=== PATIENT | female | born 1990 | race Caucasian/White ===

== ENCOUNTER → 2016-11-11 | Outpatient (CLI) | payer OTHER ==
[2016-11-11 09:01] LABS: BASO % 0.4 %; BASO ABS # 0.03 K/uL (0-0.2); COMPLETE YES; HEMATOCRIT 41.5 % (37-47); IG% 0.3 %; LYMPH % 31.8 %; LYMPH ABS # 2.54 K/uL (1.2-3.4); MEAN CELL VOLUME 90.2 fL (80-100); MEAN CORPUSCULAR HGB CONC 33.3 g/dl (32-36); MEAN PLATELET VOLUME 10.3 fL (7.4-10.4); MONO % 7.1 %; NEUT % 59.4 %; PLATELET COUNT 240 K/uL (130-400); WHITE BLOOD COUNT 7.99 K/uL (4.8-10.8)
[2016-11-11 09:20] LABS: ALT/SGPT 19 U/L (12-78); BLOOD UREA NITROGEN 10 mg/dl (7-18); BUN/CREATININE RATIO 12.6 (10-20); CARBON DIOXIDE 26 mmol/L (21-32); CHLORIDE 106 mmol/L (98-107); CHOLESTEROL 151 mg/dl (0-200); GLUCOSE 76 mg/dl (70-99); POTASSIUM 3.9 mmol/L (3.5-5.1); SODIUM 139 mmol/L (136-145); TRIGLYCERIDES 46 mg/dl (0-150); VERY LOW DENSITY LIPOPROT CALC 9 mg/dl
[2016-11-11 09:30] LABS: ALB/GLOB RATIO 1.1 (0.9-2); ALKALINE PHOSPHATASE 44 U/L (45-117); AST/SGOT 12 U/L (15-37); CHOLESTEROL/HDL RATIO 2.4; HDL CHOLESTEROL 64 mg/dl; LDL CHOLESTEROL CALCULATED 78 mg/dl; THYROID STIMULATING HORMONE 0.934 uIu/ml (0.300-4.500)
[2016-11-11 12:32] LABS: URINE APPEARANCE CLEAR (CLEAR); URINE BILIRUBIN NEG (NEG); URINE COLOR YELLOW; URINE EPITHELIAL CELL AUTO >30 /lpf (0-5); URINE NITRITE NEG (NEG); URINE PH 6.5 (4.5-7.5); URINE SPECIFIC GRAVITY 1.017 (1.000-1.030); UROBILINOGEN NEG (NEG); ZZUR CULT IF INDIC CLEAN CATCH YES
[2016-11-11 12:36] LABS: MANUAL MICROSCOPIC REQUIRED? NO; REVIEW REQ? NO
[2016-11-11 12:39] LABS: URINE TOTAL PROTEIN < 5.0 mg/dl (0-11.9)
== END | disposition home or self-care (01) ==
LOC: C.LAB 08:07
PROVIDERS: ATTEND Internal Medicine Nephrology
DX: Z00.00 Encounter for general adult medical examination without abnormal findings (principal); I10 Essential (primary) hypertension

== ENCOUNTER → 2017-01-02 | Outpatient (CLI) | payer OTHER ==
[2017-01-02 12:03] LABS: URINE APPEARANCE CLEAR (CLEAR); URINE BILIRUBIN NEG (NEG); URINE COLOR YELLOW; URINE NITRITE NEG (NEG); UROBILINOGEN NEG (NEG)
[2017-01-02 12:12] LABS: MANUAL MICROSCOPIC REQUIRED? NO; REVIEW REQ? NO
[2017-01-05 10:37] LABS: CHLAMYDIA TRACH RNA*** NOT DETECTED (NOT DETECTED); GC (NEIS GONORRHOEAE)RNA** NOT DETECTED (NOT DETECTED)
== END | disposition home or self-care (01) ==
LOC: C.LABSPEC 11:02
PROVIDERS: ATTEND Obstetrics & Gynecology
DX: Z34.01 Encounter for supervision of normal first pregnancy, first trimester (principal); Z3A.00 Weeks of gestation of pregnancy not specified

== ENCOUNTER → 2017-01-12 | Outpatient (CLI) | payer OTHER ==
[2017-01-12 08:39] LABS: PATIENT HEIGHT 180.3 cm
[2017-01-12 09:49] LABS: BASO % 0.2 %; BASO ABS # 0.02 K/uL (0-0.2); COMPLETE YES; EOS % 0.8 %; HEMATOCRIT 42.1 % (37-47); IG% 0.2 %; LYMPH % 22.9 %; LYMPH ABS # 1.98 K/uL (1.2-3.4); MEAN CELL VOLUME 89.6 fL (80-100); MEAN CORPUSCULAR HEMOGLOBIN 30.9 pg (25-34); MEAN CORPUSCULAR HGB CONC 34.4 g/dl (32-36); MEAN PLATELET VOLUME 10.2 fL (7.4-10.4); NEUT % 68.9 %; PLATELET COUNT 236 K/uL (130-400); WHITE BLOOD COUNT 8.63 K/uL (4.8-10.8)
[2017-01-12 10:01] LABS: URINE TOTAL PROTEIN < 5.0 mg/dl (0-11.9)
[2017-01-12 10:36] LABS: CREATININE 0.65 mg/dl (0.6-1.2); URINE COLLECTION TIME 24 HOURS; URINE TOTAL PROTEIN CALC < 70.0 mg/24 hr (0-149.1)
[2017-01-19 10:34] LABS: RX HIV-1 RNA QUAL Not Detected (Not Detected)
== END | disposition home or self-care (01) ==
LOC: C.LAB 08:20
PROVIDERS: ATTEND Obstetrics & Gynecology
DX: Z34.01 Encounter for supervision of normal first pregnancy, first trimester (principal); O10.919 Unspecified pre-existing hypertension complicating pregnancy, unspecified trimester

== ENCOUNTER → 2017-05-08 | Outpatient (CLI) | payer OTHER ==
[2017-05-08 17:45] LABS: BASO % 0.1 %; BASO ABS # 0.01 K/uL (0-0.2); EOS % 0.8 %; EOS ABS # 0.07 K/uL (0-0.5); HEMATOCRIT 35.3 % (37-47); HEMOGLOBIN 11.8 g/dL (12.0-16.0); IG# 0.03 K/uL (0.00-0.02); LYMPH % 25.2 %; LYMPH ABS # 2.35 K/uL (1.2-3.4); MEAN CELL VOLUME 90.3 fL (80-100); MEAN CORPUSCULAR HEMOGLOBIN 30.2 pg (25-34); MEAN CORPUSCULAR HGB CONC 33.4 g/dl (32-36); MEAN PLATELET VOLUME 10.4 fL (7.4-10.4); MONO % 8.2 %; MONO ABS # 0.76 K/uL (0.11-0.59); NEUT % 65.4 %; PLATELET COUNT 242 K/uL (130-400); RED CELL DISTRIBUTION WIDTH CV 12.6 % (11.5-14.5); RED CELL DISTRIBUTION WIDTH SD 41.5 fL (36.4-46.3); WHITE BLOOD COUNT 9.32 K/uL (4.8-10.8)
[2017-05-08 18:28] LABS: ALBUMIN 2.8 gm/dl (3.4-5.0); ALKALINE PHOSPHATASE 52 U/L (45-117); ALT/SGPT 18 U/L (12-78); AST/SGOT 14 U/L (15-37); TOTAL PROTEIN 6.6 gm/dl (6.4-8.2); URIC ACID 3.8 mg/dl (2.6-7.2)
== END | disposition home or self-care (01) ==
LOC: C.LAB1850 16:20
PROVIDERS: ATTEND Obstetrics & Gynecology
DX: O09.93 Supervision of high risk pregnancy, unspecified, third trimester (principal); O10.919 Unspecified pre-existing hypertension complicating pregnancy, unspecified trimester

== ENCOUNTER → 2017-07-09 | Outpatient (CLI) | payer OTHER | END | disposition home or self-care (01) | LOC: C.LABSPEC 17:38 | PROVIDERS: ATTEND Obstetrics & Gynecology | DX: O09.93 Supervision of high risk pregnancy, unspecified, third trimester (principal) ==

== ENCOUNTER 2017-07-31 03:07 | Inpatient (IN) | payer OTHER ==
[~2017-07-31] VITALS: Ht 180.3 cm; Wt 98.2 kg
[2017-07-31] MEDS ORDERED: PREN-63 (18:04)
[2017-07-31] MEDS ORDERED: LACTATED RINGER'S 1000ML 1,000 ML IV PRN (18:19)
[2017-07-31] MEDS ORDERED: LACTATED RINGER'S 1000ML 500 ML IV PRN (18:19)
[2017-07-31 18:21] VITALS: Ht 180.3 cm; Wt 98.2 kg
[2017-07-31] MEDS ORDERED: OXYTOCIN 30 UNITS/500ML NSS IV PRN (18:30)
[2017-07-31 18:46] LABS: BASO % 0.1 %; BASO ABS # 0.01 K/uL (0-0.2); EOS % 0.7 %; EOS ABS # 0.06 K/uL (0-0.5); HEMATOCRIT 35.5 % (37-47); HEMOGLOBIN 11.5 g/dL (12.0-16.0); IG# 0.03 K/uL (0.00-0.02); LYMPH % 25.5 %; LYMPH ABS # 2.21 K/uL (1.2-3.4); MEAN CELL VOLUME 79.8 fL (80-100); MEAN CORPUSCULAR HEMOGLOBIN 25.8 pg (25-34); MEAN PLATELET VOLUME 10.2 fL (7.4-10.4); MONO % 11.1 %; MONO ABS # 0.96 K/uL (0.11-0.59); NEUT % 62.3 %; NEUT ABS # 5.41 K/uL (1.4-6.5); PLATELET COUNT 239 K/uL (130-400); RED CELL DISTRIBUTION WIDTH CV 14.1 % (11.5-14.5); RED CELL DISTRIBUTION WIDTH SD 40.3 fL (36.4-46.3); WHITE BLOOD COUNT 8.68 K/uL (4.8-10.8)
[2017-07-31] MEDS: LACTATED RINGER'S 1000ML 1,000 ML IV SCH (18:48)
[2017-07-31 18:51] LABS: MEAN CORPUSCULAR HGB CONC 32.4 g/dl (32-36)
[2017-07-31 18:55] LABS: INR 0.9 (0.9-1.1)
[2017-07-31 19:13] LABS: ALBUMIN 2.5 gm/dl (3.4-5.0); ALKALINE PHOSPHATASE 142 U/L (45-117); ALT/SGPT 13 U/L (12-78); AST/SGOT 16 U/L (15-37); CREATININE 0.59 mg/dl (0.60-1.20); TOTAL PROTEIN 6.3 gm/dl (6.4-8.2); URIC ACID 4.8 mg/dl (2.6-7.2)
[2017-08-01] MEDS: LACTATED RINGER'S 1000ML 1,000 ML IV SCH (10:25)
[2017-08-01] MEDS ORDERED: BENZOCAINE 20% AER SPR 82.5 GM CAN EXT PRN (14:15)
[2017-08-01] MEDS ORDERED: SUPERCREAM 0.870 % 15GM JAR EXT PRN (14:15)
[2017-08-01] MEDS ORDERED: ACETAMINOPHEN 325 MG TAB PO PRN (14:15)
[2017-08-01] MEDS ORDERED: OXYTOCIN 30 UNITS/500ML NSS IV PRN (14:15)
[2017-08-01] MEDS ORDERED: LANOLIN OINT EXT PRN (14:15)
[2017-08-01] MEDS ORDERED: OXYCODONE/ACETAMINOPHEN 5-325 TAB PO PRN (14:15)
--- NOTE | 2017-08-01 14:54 | DELIVERY SUMMARY ---
DATE OF OPERATION: 08/01/2017 The patient is a 27-year-old 1, P0 white female, EDC of 07/31/2017, who presented for induction because of a history of chronic hypertension, blood pressure has had been essentially normal without medications during her . She received a cervical Horne balloon, the evening of 07/31/2017, which progressed her to 1-2 cm. Pitocin augmentation was also started at that time at 4 cm then membranes were ruptured for clear fluid. She then progressed quickly to full dilation and pushed effectively over intact perineum for delivery of a viable male infant. Mouth and nasopharynx were suctioned on the perineum. A double loose nuchal cord was reduced prior delivering the rest of the . The was then placed on the mother's abdomen for further attention and dry. The cord was clamped and cut and the was then taken to the baby bed for further stimulation. There was spontaneous crying as well as the infant was moving all 4 limbs. The placenta was then expressed intact with a 3-vessel cord. A first degree perineal laceration was repaired with 3-0 chromic and 1% lidocaine. There were bilateral superficial lacerations of the labia but these were not bleeding and therefore not repaired. They will be considered a first degree laceration. Estimated blood loss was 300 mL. Mother and infant were doing well after delivery. I attest to the content of the Intraoperative Record and any orders documented therein. Any exception s are noted below.
[2017-08-01 16:20] VITALS: BP 147/86; PULSE 84; TEMP 36.7
[2017-08-01] MEDS: DOCUSATE SODIUM 100 MG CAP PO SCH (20:23)
[2017-08-01] MEDS: BISACODYL 5 MG TABEC PO SCH (20:23)
[2017-08-01 20:30] VITALS: BP 144/87; PULSE 81; TEMP 36.8
[2017-08-02] VITALS: BP 134/84; PULSE 86; TEMP 36.8
[2017-08-02 02:10] VITALS: BP 120/79; PULSE 64; TEMP 36.6
[2017-08-02] MEDS: IBUPROFEN 600 MG TAB PO PRN ×3 (02:41→20:22)
[2017-08-02 04:45] VITALS: BP 139/85; PULSE 80; TEMP 36.5
[2017-08-02] MEDS: BISACODYL 5 MG TABEC PO SCH (05:51)
[2017-08-02] MEDS ORDERED: BISACODYL 5 MG TABEC ONE (05:56)
[2017-08-02 07:26] LABS: HEMATOCRIT 33.9 % (37-47); HEMOGLOBIN 11.1 g/dL (12.0-16.0)
[2017-08-02 07:35] VITALS: BP 147/79; PULSE 76; TEMP 36.7
[2017-08-02] MEDS: DOCUSATE SODIUM 100 MG CAP PO SCH ×2 (07:44→20:21)
[2017-08-02] MEDS: PRENATAL VITAMIN TAB PO SCH (07:44)
--- NOTE | 2017-08-02 08:33 | Progress Note ---
Subjective Aug 02, 2017. Subjective conversation w/ patient, physical exam Ambulation: ambulating normally Voiding: no voiding problems Passing Gas: Yes Diet Tolerance: Regular Diet Lochia: Small Feeding Type: Breast Feeding Review of Systems Constitutional: No fever, No chills, No sweats, No weight loss, No weakness, No fatigue, No problem reported Breast: No see HPI, No breast lump, No change in shape, No nipple discharge, No breast pain, No problem reported Abdomen: No pain, No nausea, No vomiting, No diarrhea, No constipation, No GI bleeding, No problem reported Objective Vital Signs Date Time Temp Pulse Resp B/P (MAP) Pulse Ox O2 Delivery O2 Flow Rate FiO2 08/02/17 04:45 36.5 80 18 139/85 (103) Room Air 08/02/17 00:00 Room Air 08/02/17 00:00 36.8 86 18 134/84 (101) Room Air 08/01/17 20:30 36.8 81 18 144/87 (106) Room Air 08/01/17 16:20 36.7 84 18 147/86 (106) Room Air 08/01/17 16:20 Room Air Physical Exam General Appearance: WELL-APPEARING, NO APPARENT DISTRESS Abdomen: non tender, soft Fundus: Firm, Non-Tender, Relation to Umbilicus (1 below U) Extremities: no calf tenderness Laboratory Results Last 24 Hours Test 08/02/17 07:08 Hemoglobin 11.1 g/dL Hematocrit 33.9 % Assessment and Plan Day#: 1 Continue Routine Care: stable course continue current care plan
--- NOTE | 2017-08-02 08:34 | Discharge Instructions ---
Discharge Instructions Date of Service Aug 02, 2017. Admission Reason for Admission: Induction Discharge Discharge Diagnosis / Problem: normal delivery- chronic HTN Discharge Goals Goal(s): Routine recovery after delivery Medications Continue Dispensed Medications: supercream, dermaplast, tucks, lansinoh Activity Recommendations Activity Limitations: per Instructions/Follow-up section . Instructions / Follow-Up Instructions / Follow-Up ACTIVITY RECOMMENDATIONS: * Gradual return to full activity over the next 2-3 weeks. * No lifting - nothing heavier than baby over the next 2-3 weeks. * Do not engage in vigorous exercise, sexual activity or sports until cleared by your physician. * Do not drive or operate any motorized equipment until cleared by your physician. * You may shower/bathe daily. MEDICATIONS: For discomfort or pain, you may use Acetaminophen (Tylenol), Ibuprofen (Advil), or Naproxen (Aleve) following the package directions. For constipation you may use Colace following the package directions. BREAST CARE: If you are not breast feeding: * Wear a supportive bra 24 hours a day for one to two weeks. * Avoid stimulating your breasts and nipples as much as possible during the first few weeks after delivery. * When taking a shower, have the warm water hit your back, not breasts. * When your breasts feel full, apply ice packs. Usually three to four times a day helps ease the discomfort. * Take a mild pain medication (Tylenol / Motrin) when you are uncomfortable. If breast feeding: * Use breast milk to lubricate nipples. Lansinoh cream may be used for sore nipples. You do not need to remove cream prior to breast feeding. If using a different brand of cream, check the label for directions regarding removal of cream prior to nursing. * Wear a supportive bra. * If having problems with breasts or breast feeding, call a gis consultant or your health care provider. EPISIOTOMY CARE: After delivery, if you have an episiotomy (stitches), the following steps will ease discomfort and aid healing. * For the first 24 hours after delivery, place ice packs next to your episiotomy to help reduce swelling. * After the first 24 hour-period, sitz baths, either portable or in the tub, are suggested. A shower with a shower arm sprayed over the episiotomy may be comforting. * Colleen care should be done after each voiding and bowel movement. Squirt warm water from a plastic bottle over the perineum (region of the body between the anus and urinary opening) and pat dry. * Use Dermoplast to ease discomfort. Shake container. [place] directly over the episiotomy. Place a Tucks on a clean sanitary pad next to your episiotomy. SPECIAL CARE INSTRUCTIONS: When you are discharged from the hospital, it is important for you to follow the instructions listed below: * During the first week at home, you should be able to care for yourself and your baby. In addition, the usual light household activities are encouraged. * Limit your activities to the way you feel. Do not try to clean the house or move furniture. Be sensible. * If you actively engage in sports and have done so up until the time of your delivery, you may resume these activities as soon as you feel able. This may take up to one month or even longer. Use good judgment. * Continue to take your vitamins for at least six weeks after the of your baby. * Your diet need not be limited unless you were on a special diet before your delivery. Breast-feeding mothers need around 2500 calories per day and at least 64-80 ounces of fluid per day (8 to 10 glasses). * You should eat foods from the four major food groups. Crash diets or fad diets are to be avoided. Eating lean meats, fresh fruits and vegetables, low-fat dairy products, high fiber foods and a regular exercise program, will help you get back to your pre- weight without putting your health at risk. * Constipation is sometimes a problem after delivery. Take a mild laxative as needed. If breast feeding, Milk of Magnesia is acceptable to use. You may use a suppository or Fleets enema if no episiotomy. * A daily shower or tub bath is suggested. Be sure to thoroughly and gently dry the perineum. * A bloody vaginal discharge will usually continue until around four weeks post . A small amount of bleeding may continue for as long as six weeks. Vaginal discharge changes from the bright red bleeding after delivery to pink then brownish and finally yellowish-pink before becoming white and disappearing. * Bleeding may increase with activity. Your first period may come in 4-8 weeks. If you are breast feeding, your period may be delayed even longer. * [place] (sex) can begin whenever both you and your partner feel comfortable and do not have any form of genital infection. It is recommended that you wait at least six weeks for internal and external healing to occur. If you have questions, please talk to your health care practitioner. A condom should be used to prevent infection and . * Foreplay, gentle intercourse and lubrication is very important the first several times to prevent pain. A water-based lubricant such as K-Y jelly or Astroglide may be used. * If you have RH negative blood and your baby is RH positive, you will receive RHOGAM by injection prior to discharge. The nurse will give you a card to keep with you that has the date and place that you received RHOGAM after delivery. * During your care, you had a Rubella screen done to check for the presence of rubella antibodies in your blood. If your test was negative, you will receive a Rubella vaccine prior to discharge. This vaccine may cause a fever, soreness at the injection site and flu-like symptoms. If these symptoms persist, notify your health care practitioner. is not advised for one month after a Rubella vaccine. * Verbalizes understanding of car seat law as reviewed with patient nursing. * Car Seat hand-out given and reviewed with patient by nursing. * Shaken baby information reviewed with patient by nursing. Call you doctor if: * Heavy bleeding (saturating several pads an hour) or passing clots the size of your fist. * A fever >101 degrees F (38.3 degrees C) on two occasions four hours apart and /or chills. * Unusual pain in the pelvic or vaginal areas. * "Baby Blues" lasting longer than two weeks. If you have any questions or concerns, call your health care practitioner at . FOLLOW UP VISIT: * Please call the office at to schedule a 6 week examination. It is important you keep this appointment. It is important for you to make arrangements for either yearly or twice yearly check-ups thereafter. Current Hospital Diet Patient's current hospital diet: Regular OB Diet Discharge Diet Recommended Diet: Regular OB Diet Pending Studies Studies pending at discharge: no Medical Emergencies . Who to Call and When: Medical Emergencies: If at any time you feel your situation is an emergency, please call [phone] immediately. . Non-Emergent Contact Non-Emergency issues call your: Hog Ribber . . "Provider Documentation" section prepared by Aimee Alonso .
[2017-08-02 13:15] VITALS: BP 143/74; PULSE 88; TEMP 36.5
[2017-08-02 16:28] VITALS: BP 133/90; PULSE 73; TEMP 36.6
[2017-08-03] MEDS ORDERED: BISACODYL 10 MG SUPP PR PRN (07:00)
--- NOTE | 2017-08-03 07:31 | OB/GYN Progress Note ---
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 Subjective conversation w/ patient, conversation w/ family, physical exam, chart review, lab review Ambulation: ambulating normally Voiding: no voiding problems Passing Gas: Yes Diet Tolerance: Regular Diet Lochia: Moderate Review of Systems Constitutional: No fever, No chills, No sweats Respiratory: No cough, No sputum, No wheezing Cardiac: No chest pain Abdomen: No pain Female : No dysuria Objective Vital Signs Date Time Temp Pulse Resp B/P (MAP) Pulse Ox O2 Delivery O2 Flow Rate FiO2 08/02/17 16:28 36.6 73 16 133/90 (104) 08/02/17 13:15 36.5 88 22 143/74 (97) 08/02/17 07:35 36.7 76 20 147/79 (101) Physical Exam General Appearance: WELL-APPEARING, WD/WN, NO APPARENT DISTRESS Respiratory/Chest: lungs clear, no accessory muscle use Cardiovascular: regular rate, rhythm, no murmur Abdomen: normal bowel sounds, non tender, soft Fundus: Firm Extremities: non-tender, normal inspection, no pedal edema Medications Current Inpatient Medications Medications (Trade) Dose Ordered Sig/Helen Route Start Time Stop Time Status Last Admin Dose Admin Oxytocin (Pitocin IV) 30 units UD PRN IV 08/01/17 14:15 08/31/17 14:14 Benzocaine (Dermoplast Aero Spr) 1 appln PRN PRN EXT 08/01/17 14:15 08/31/17 14:14 08/01/17 20:34 1 APPLN Cocaine HCl (Supercream 0.870% Cr) BID PRN EXT 08/01/17 14:15 08/15/17 14:14 08/01/17 20:34 15 GM Lanolin (Lanolin Oint) PRN PRN EXT 08/01/17 14:15 08/31/17 14:14 Prenat Multivit/ [place]/Iron/Folic Ac ( Vitamin Tab) 1 tab DAILY PO 08/02/17 08:00 09/01/17 07:59 08/02/17 07:44 1 TAB Ibuprofen (Motrin Tab) 600 mg Q4H PRN PO 08/01/17 14:15 08/31/17 14:14 08/02/17 20:22 600 MG Acetaminophen (Tylenol Tab) 650 mg Q6H PRN PO 08/01/17 14:15 08/31/17 14:14 Oxycodone/ Acetaminophen (Percocet 5-325mg Tab) 1 tab Q4H PRN PO 08/01/17 14:15 08/15/17 14:14 Bisacodyl (Dulcolax Supp) 10 mg DAILY PRN NM 08/03/17 07:00 Docusate Sodium (coLACE CAP) 100 mg BID PO 08/01/17 20:00 08/31/17 19:59 08/02/17 20:21 100 MG Assessment and Plan Continue Routine Care: Resident Physician Supervision Note: I was present with Dr. Lex Castillo during the history and exam. I discussed the case with the resident and agree with the findings and plan as documented in the note. Any exceptions or clarifications are listed here: [None] Documented By: Aimee Reza 27 F, , vaginal delivery om 08/01. Pt is O+/RI/GBS-. Reviewed vitals WNL. Patient is doing well clinically Plan; 1. Vaginal delivery; cont. pp care: monitor lochia, ambulate, control pain
[2017-08-03] MEDS: DOCUSATE SODIUM 100 MG CAP PO SCH (08:10)
[2017-08-03] MEDS: PRENATAL VITAMIN TAB PO SCH (08:10)
[2017-08-03 08:40] VITALS: BP 145/97; PULSE 89; TEMP 36.7
== END 2017-08-03 16:15 | disposition home or self-care (01) | DRG 774 ==
LOC: C.LD 17:10 → C.OBG 08-01 16:51
PROVIDERS: ADMIT Obstetrics & Gynecology; ATTEND Obstetrics & Gynecology
PROC: 10H07YZ Insertion of Other Device into Products of Conception, Via Natural or Artificial Opening (ICD-10-PCS; 2017-07-31)
PROC: 10903ZC Drainage of Amniotic Fluid, Therapeutic from Products of Conception, Percutaneous Approach (ICD-10-PCS; 2017-07-31)
PROC: 3E033VJ Introduction of Other Hormone into Peripheral Vein, Percutaneous Approach (ICD-10-PCS; 2017-07-31)
PROC: 10E0XZZ Delivery of Products of Conception, External Approach (ICD-10-PCS; principal; 2017-08-01)
PROC: 0HQ9XZZ Repair Perineum Skin, External Approach (ICD-10-PCS; principal; 2017-08-01)
DX: O10.92 Unspecified pre-existing hypertension complicating childbirth (principal); O70.0 First degree perineal laceration during delivery; O69.81X0 Labor and delivery complicated by cord around neck, without compression, not applicable or unspecified; Z3A.40 40 weeks gestation of pregnancy; Z37.0 Single live birth

== ENCOUNTER → 2017-09-04 | Outpatient (CLI) | payer OTHER ==
[~2017-09-04] MED LIST: PREN-63
== END | disposition home or self-care (01) ==
LOC: C.PAPS 17:58
PROVIDERS: ATTEND Obstetrics & Gynecology
DX: Z12.4 Encounter for screening for malignant neoplasm of cervix (principal)

== ENCOUNTER 2021-06-03 06:54 | Inpatient (IN) ==
--- NOTE | 2021-05-28 13:08 | Anesthesiology Consultation ---
Date of Service May 28, 2021 Assessment & Plan (1) Encounter for pre-operative examination: - PCP telehealth visit 05/24/2021 [place]: "...currently 37 weeks . Started with nasal congestion on Thursday. Reports sinus pressure. No body aches. No cough. No fever or chills. 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 Pt is fully vaccinated. Last covid test was negative on 05/22/2021...Symptoms onset 6 days ago. Has had multiple negative covid tests. Is 37 weeks . Will send in Cefdinir to pharmacy. Notify office if symptoms do not improve..." - PCP office visit 09/24/2020 [place]: "...Numbness and tingling of left side of face...Pt with one time episode of confusion and left face and left sided body numbness. [facility] ER report not available for review. Will review and if needs f/u pt will be notified. If negative, will do expectant management. Pt to notify us if she has recurrence of symptoms and if so consider further w/u and/or referral to neuro. f/u as needed..." - ED visit 09/20/2020 [facility]: "...acute onset of confusion today...started to having [sic] memory issues steady dizziness...transient paresthesias migrating from left to right and left side again...resolved at this time...seems a little anxious but is concerned about the inability to remember things acutely...Some of this seems anxiety related although it is unclear if the anxiety is because of the confusion...all symptoms have fully resolved...Based on the labs and the entire picture I must assume that this was an anxiety...I did notice on the head scan that she has both ethmoidal and sphenoid mild sinusitis and I will put her on 7 days of Bactrim for this..." - COVID screening: Per master cosmetologist : Travel screen negative, no known COVID-19 positive contacts or current COVID-19 related symptoms in past 2 weeks. Patient vaccinated. Surgeon arranging preop COVID testing, scheduled 05/30/2021 [facility]. Awaiting results. Chart Review Chart Review: Patient NOT seen in Pre Admission Testing and data entry analyst initiated History Surgery Operation Date: 06/03/21 07:30 Proposed Procedures p Section (Delivery of Baby Through Abdominal Incision) - Brittney Jenkins MD, FACOG Height/Weight Height: 5 ft 11 in Weight: 102.965 kg Allergies Allergy/AdvReac Type Severity Reaction Status Date / Time amoxicillin AdvReac Intermediate GI SYMPTOMS Verified 05/28/21 12:22 Penicillins AdvReac Intermediate GI SYMPTOMS Verified 05/28/21 12:22 Medications Home Medications Medication Instructions Recorded Confirmed Last Taken prenat.vits,shaheen,[id number] 1 tab PO QAM 10/17/20 05/28/21 Unknown cefdinir 300 mg capsule 300 mg PO BID #14 cap 05/24/21 05/28/21 Unknown labetalol 100 mg tablet 100 mg PO BID #60 tab 05/24/21 05/28/21 Unknown aspirin 81 mg tablet,delayed 81 mg PO QAM 05/28/21 05/28/21 Unknown release Past Medical History Medical History (Updated 05/28/21 @ 13:24 by Mona Abdullahi PA-C) Acute confusion 09/20/2020 with full resolution in ER. negative CT scan. dx anxiety related. Pt denies issues since per PAT RN records. 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 noted on HAND SANDER and PCP exams per record review Dizziness Miscarriage Palpitations with regular cardiac rhythm Varicella vaccination Past Family History Family History Grandmother Colorectal cancer MATERNAL Grandfather (Maternal) Myocardial infarction Mother Hypertension Father Hypertension Family history of diabetes mellitus Denies family history of Ovarian cancer Prostate cancer Breast cancer Past Surgical History Surgical History [place] teeth removed Social History Smoking Status: Never smoker Do You Dip or Chew Tobacco: No Hx Alcohol Use: No Hx Substance Use: No Testing Electrocardiogram Date: 10/07/20 Normal sinus rhythm, rate 90 bpm. Chest X-Ray Date: 10/07/20 *1 view* No acute process. Other Testing Event monitor 05/26/2020 Normal sinus rhythm PAC burden of 1% Unable to calculate PVCs due to excessive artifact Chest CTA 10/07/2020 IMPRESSION: 1. No evidence of acute pulmonary embolism 2. Small left pleural effusion and trace right pleural effusion 3. Dependent airspace opacities statistically atelectatic CT head 09/20/2020 Mild sinus disease involving the ethmoidal air cells and sphenoid sinuses There is no evidence of intracranial hemorrhage, mass nor infarct
--- NOTE | 2021-05-30 18:47 | History & Physical Report ---
Date of Service May 30, 2021 Assessment & Plan (1) 38 weeks gestation of : (2) malpresentation: (3) Chronic hypertension affecting : Plan: Given presentation will proceed with c/s on this coming thursday. Her underlying diagnosis of chronic hypertension warrants delivery at this EGA. Risks, alternatives and complications of procedure reviewed with patient and consent reviewed and signed. Patient aware of preop, postop instructions and course. History of Present Illness Chief Complaint: planned c/s Primary Care Provider: Bob MonetLeila Harpal, DO 30yo at 38+wks ega on day of her admission for planned section due to malpresentation and chronic hypertension. This baby has been footling breech. Aware of ecv and declined. Ready to proceed with c/s. No rom, no vb. +FM. Has had dx of chronic htn and getting nsts, dvps and growth us as per protocol. PNC c/b 1. CHTN --on labetalol 100mg bid, last growth u/s on 05/17/21 efw 88% 2. Breech presentation PNL rh pos, ri, gbs neg OBH: x 1, sab x 1 GYNH: nl paps no stds. Allergies Allergy/AdvReac Type Severity Reaction Status Date / Time amoxicillin AdvReac Intermediate GI SYMPTOMS Verified 05/30/21 15:18 Penicillins AdvReac Intermediate GI SYMPTOMS Verified 05/30/21 15:18 Home Medications Medication Instructions Recorded Confirmed Type prenat.vits,shaheen,[id number] 1 tab PO QAM 10/17/20 05/30/21 History cefdinir 300 mg capsule 300 mg PO BID #14 cap 05/24/21 05/30/21 Rx labetalol 100 mg tablet 100 mg PO BID #60 tab 05/24/21 05/30/21 Rx aspirin 81 mg tablet,delayed 81 mg PO QAM 05/28/21 05/30/21 History release Patient History Medical History (Updated 05/30/21 @ 18:50 by Brittney Jenkins MD, FACOG) Acute confusion 09/20/2020 with full resolution in ER. negative CT scan. dx anxiety related. Pt denies issues since per PAT RN records. 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 PROGRAMMER and PCP exams per record review Dizziness Miscarriage Palpitations with regular cardiac rhythm Varicella vaccination Surgical History [place] teeth removed Family History Grandmother Colorectal cancer MATERNAL Grandfather (Maternal) Myocardial infarction Mother Hypertension Father Hypertension Family history of diabetes mellitus Denies family history of Ovarian cancer Prostate cancer Breast cancer Social History Smoking Status: Never smoker Second Hand Exposure: No; Hx Alcohol Use: No Hx Substance Use: No Preferred Language: Korean Communication Ability: Effective Visual Impairment: No Limitations Hearing Ability: Normal Feather Stitcher Required: No Beliefs That Will Affect Care: None marital status: marital status details: Vadim Nuno (31) [phone] Current Living Situation: Spouse and Family Current Living Situation Comment: Lives with spouse, son and 1 cat spouse changes litter current occupational status: employed 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, 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 Feels Safe at Home: Yes Childhood Exposure to Second-Hand Smoke: No Dental Care, Regularly: Yes Physical Activity Frequency: Daily Seatbelt Use: always Sunscreen Use: Yes Assistive Devices: Glasses Review of Systems as per Subjective / HPI Physical Exam Constitutional: WD/WN, vitals as above Respiratory: normal respiratory effort, lungs clear to auscultation Cardiovascular: Rate/Rhythm: regular rate and regular rhythm Gastrointestinal (Abdomen): soft gravid nt +fhts Musculoskeletal: no edema nontender calves Neurologic: grossly normal Psychiatric: A+Ox3, euthymic affect Coding Level of Care Code None Diagnoses 38 weeks gestation of Z3A.38 malpresentation O32.9XX0 Chronic hypertension affecting O10.919
[~2021-06-03 06:54] MED LIST changes: +CITRIC ACID/SODIUM CITRATE 15 ML UDC PO SCH; +LACTATED RINGER'S 1,000 ML IV SCH; -PREN-63; +ceFAZolin 2,000 MG in SYRINGE 0 ML IV SCH
[2021-06-03] MEDS ORDERED: OXYTOCIN 30 UNITS/500 ML BAG IV PRN (07:08)
[2021-06-03] MEDS ORDERED: LACTATED RINGER'S 1,000 ML IV PRN (07:08)
[2021-06-03] MEDS ORDERED: MoRPHine SULFATE PF 1 MG/ML 10 ML AMP/VIAL ONE ×2 (07:18→10:05)
[2021-06-03 07:32] LABS: Hematocrit (blood only) 33.2 % (37-47); Hemoglobin 9.8 g/dL (12.0-16.0); Mean Corpuscular Hemoglobin 21.1 pg (25-34); Mean Corpuscular Hgb Conc 29.5 g/dL (32-36); Mean Corpuscular Volume 71.6 fL (80-100); Platelet Count 349 K/uL (130-400); RDW Coefficient of Variation 16.6 % (11.5-14.5); RDW Standard Deviation 43.4 fL (36.4-46.3); Red Blood Count 4.64 M/uL (4.2-5.4); White Blood Count 8.84 K/uL (4.8-10.8)
--- NOTE | 2021-06-03 07:35 | History & Physical Bridge Note ---
Date of Service June 03, 2021 History & Physical Bridge Note I have examined the patient, reviewed the History & Physical and in the interval since the performance of the History & Physical I have noted the following changes of clinical significance: no changes noted. Bedside u/s footling breech.
[2021-06-03] MEDS ORDERED: PHENYLEPHRINE 100MCG/ML 5ML SYR ONE (08:41)
[2021-06-03] MEDS ORDERED: OXYTOCIN 10 UNITS/ML 10ML VIAL ONE (08:41)
[2021-06-03] MEDS ORDERED: diphenhydrAMINE 50 MG/ML VIAL IV PRN (09:20)
[2021-06-03] MEDS ORDERED: LACTATED RINGER'S 500 ML IV PRN (09:20)
[2021-06-03] MEDS ORDERED: NALOXONE HCL 0.4 MG/1 ML VIAL/CARP IV PRN (09:20)
[2021-06-03] MEDS ORDERED: ePHEDrine sulfate 50 MG/ML AMP IV PRN (09:20)
[2021-06-03] MEDS ORDERED: NALOXONE HCL 0.08 MG in SYRINGE 1.8 ML IV PRN (09:20)
[2021-06-03] MEDS ORDERED: MoRPHine SULFATE PF 1 MG/ML 10 ML AMP/VIAL INT SPINAL ONE (09:20)
[2021-06-03] MEDS ORDERED: NALBUPHINE HCL INJ 10 MG/ML AMP IV PRN (09:20)
[2021-06-03] MEDS ORDERED: NALOXONE HCL 1 MG in SODIUM CHLORIDE 0.9% 1000ML 1,000 ML IV PRN (09:20)
[2021-06-03] MEDS ORDERED: fentaNYL citrate 100 MCG/2 ML VIAL IV PRN (09:21)
[2021-06-03] MEDS ORDERED: HYDROmorphone INJ 2 MG/ML SYR/VIAL IV PRN (09:21)
[2021-06-03] MEDS ORDERED: ACETAMINOPHEN 1,000 MG/100 ML VIAL IV STA (09:21)
[2021-06-03] MEDS ORDERED: KETOROLAC 30 MG/ML VIAL IV PRN (09:21)
[2021-06-03] MEDS ORDERED: DC INTRASPINAL MORPHINE SCH (09:30)
[2021-06-03] MEDS ORDERED: SODIUM CHLORIDE 0.9% 1000ML 1,000 ML IV SCH (09:30)
[2021-06-03] MEDS ORDERED: NO NARCOTICS OR SEDATIVES SCH (09:30)
--- NOTE | 2021-06-03 11:11 | Post Operative Brief Note ---
PG Immediate Post Op with CF Date of Surgery June 03, 2021 Pre & Post Diagnosis Operation Date: 06/03/21 07:30 Pre-Op Diagnosis: 38 Weeks;Chronic Hypertension; Malpresentation Post-Op Diagnosis: Same; Delivery of a live male child @1036 ( Main OR 3) I identified the patient and participated in the time-out.: Yes Procedure Operation Date: 06/03/21 07:30 Actual Procedures p Primary Low Transverse Section (Delivery of Baby Through Abdominal Incision) - Brittney Jenkins MD, FACOG Surgeon Brittney Jenkins MD, FACOG Surface Hydrologist RN Estimated Blood Loss 600 Findings Consistent with Post-Op Diagnosis (viable male, normal uterus, tubes and ovaries bilaterally) Fluids 1000 Specimens Specimen Description: A. Placenta-hold B. Cord Blood Drains Horne Catheter Anesthesia Type Spinal Complications none Disposition Accompanied Patient To Recovery: No Disposition: L&D
--- NOTE | 2021-06-03 11:22 | Operative Report ---
PG Post Operative Report Pre & Post Diagnosis Operation Date: 06/03/21 07:30 Pre-Op Diagnosis: 38 Weeks;Chronic Hypertension; Malpresentation Post-Op Diagnosis: Same; Delivery of a live male child @1036 ( Main OR 3) I identified the patient and participated in the time-out.: Yes Procedure Operation Date: 06/03/21 07:30 Actual Procedures p Primary Low Transverse Section (Delivery of Baby Through Abdominal Incision) - Brittney Jenkins MD, FACOG Surgeon Brittney Jenkins MD, FACOG Sock Ironer RN Estimated Blood Loss 600 Findings Consistent with Post-Op Diagnosis (viable male, normal uterus, tubes and ovaries bilaterally) Fluids 1000 Specimens cord blood. Drains barnhart Anesthesia Type Spinal Complications none Disposition Accompanied Patient To Recovery: No Disposition: L&D Indications 30yo at 38wks with history of chronic hypertension and malpresentation for planned section. Fetus still breech on u/s this am, patient and partner ready to proceed. Description of Procedure The patient was taken to the operating room and identified. After adequate anesthesia was obtained, she was placed in the supine position with a leftward tilt on the operating table and prepped and draped in the usual sterile fashion. A barnhart catheter had already been placed. The knife was used to create a Pfannensteil skin incision that was carried down to the underlying layer of fascia. The fascia was nicked in the midline and this opening was extended laterally using Rios scissors. Clau clamps were placed on the superior and inferior aspect of the fascial incision tenting it upward and the underlying rectus muscles were dissected off the overlying fascia both sharply and bluntly using Rios scissors. The rectus muscles were bluntly in the midline. The peritoneal cavity was bluntly entered into. This opening was stretched. The bladder blade was placed. The vesicouterine peritoneum was elevated and opened up into and the bladder flap was created digitally and bladder blade was replaced. The knife was used to create a hysterotomy and this opening was stretched. The operators hand was placed through the hysterotomy and the bladder blade was removed. The head was elevated and flexed and with fundal pressure the head was delivered. The shoulders and body were rapidly delivered. The cord was clamped and cut and the infant's mouth and nares were bulb suction. The was handed off to the awaiting pediatricians. Cord blood was obtained. The placenta was manually expressed. The uterus was exteriorized and cleared of all clots and debris. Dilute IV Pitocin was begun. The uterine tone was improving. The hysterotomy was closed in a running interlocking fashion using 0 Vicryl followed by a second imbricating layer of 0 Vicryl. The hysterotomy was hemostatic. The uterus was returned to the abdomen. The gutters were cleared of all clots and debris. The hysterotomy was reinspected and noted to be hemostatic. The fascia was then closed in running fashion using 0 Vicryl. The subcutaneous fat was copiously irrigated and reapproximated using 2-0 chromic. The skin was closed in a subcuticular fashion using 4-0 Vicryl. At this point the procedure was terminated. The patient was transferred to the recovery room in stable condition. All sponge, lap and needle counts are correct x2. I attest to the content of the Intraoperative Record and any orders documented therein. Any exceptions are noted below. OB Procedure Charges 97600
[2021-06-03] MEDS ORDERED: ONDANSETRON INJ 2 MG/ML 2 ML VIAL ONE (11:25)
[2021-06-03] MEDS ORDERED: BENZOCAINE 20% AER SPR 82.5 GM CAN EXT PRN (11:50)
[2021-06-03] MEDS ORDERED: HYDROCORTISONE ACETATE 25 MG SUPP PR PRN (11:50)
[2021-06-03] MEDS ORDERED: MAGNESIUM HYDROXIDE SUSP 30 ML UDC PO PRN (11:50)
[2021-06-03] MEDS ORDERED: DIPHTHERIA/TETANUS/PERTUSSIS 0.5 ML SYR/VIAL IM ONE (11:50)
[2021-06-03] MEDS ORDERED: SUPERCREAM 0.870% 15 GM JAR EXT PRN (11:50)
[2021-06-03] MEDS: SIMETHICONE 80 MG CHEW PO SCH ×2 (12:20→20:09)
[2021-06-03] MEDS ORDERED: PROMETHAZINE HCL 12.5 MG in SODIUM CHLORIDE 0.9% 50 ML IV ONE (13:00)
[2021-06-03] MEDS: OXYTOCIN 20 UNITS in LACTATED RINGER'S 1,000 ML IV SCH ×2 (13:01→22:34)
--- NOTE | 2021-06-03 15:32 | Anesthesiology Progress Note ---
Date of Service June 03, 2021 Anesthesia Post Procedure Vital Signs Vital Signs: Temp Pulse Pulse Resp BP BP Pulse Ox 06/03/21 14:35 36.7 C 75 16 146/87 H 99 06/03/21 14:30 16 99 06/03/21 14:14 82 132/80 06/03/21 14:13 75 98 06/03/21 14:08 72 99 06/03/21 14:04 75 140/88 06/03/21 14:03 70 98 06/03/21 13:58 72 98 06/03/21 13:56 85 93 06/03/21 13:54 65 149/88 H 06/03/21 13:53 70 98 06/03/21 13:48 74 97 06/03/21 13:45 80 146/82 H 06/03/21 13:43 83 98 06/03/21 13:38 89 100 06/03/21 13:35 75 158/88 H 06/03/21 13:33 79 100 06/03/21 13:28 70 100 06/03/21 13:24 78 18 141/87 H 06/03/21 13:23 73 100 06/03/21 13:18 69 99 06/03/21 13:14 61 139/77 06/03/21 13:13 54 L 99 06/03/21 13:08 50 L 100 06/03/21 13:05 63 143/86 H 06/03/21 13:03 68 100 06/03/21 12:58 54 L 100 06/03/21 12:55 62 155/98 H 06/03/21 12:54 18 06/03/21 12:53 64 100 06/03/21 12:48 59 L 100 06/03/21 12:45 62 156/99 H 06/03/21 12:43 62 100 06/03/21 12:38 52 L 100 06/03/21 12:35 50 L 143/84 H 06/03/21 12:33 49 L 100 06/03/21 12:29 66 147/90 H 06/03/21 12:28 56 L 100 06/03/21 12:25 93 H 165/132 H 06/03/21 12:24 18 06/03/21 12:23 103 H 100 06/03/21 12:18 57 L 99 06/03/21 12:15 48 L 139/74 06/03/21 12:14 18 06/03/21 12:13 64 100 06/03/21 12:08 62 99 06/03/21 12:06 67 148/70 H 06/03/21 12:04 18 06/03/21 12:03 59 L 99 06/03/21 11:58 57 L 99 06/03/21 11:55 79 158/93 H 06/03/21 11:53 88 100 06/03/21 11:48 53 L 100 06/03/21 11:44 18 06/03/21 11:43 68 145/95 H 100 06/03/21 11:38 73 99 06/03/21 11:33 66 77 L 06/03/21 11:28 66 100 06/03/21 11:24 36.4 C L 85 18 142/81 H 06/03/21 11:23 88 100 06/03/21 09:39 18 06/03/21 07:42 36.9 C 76 20 142/81 H Pulse Ox 06/03/21 14:35 06/03/21 14:30 99 06/03/21 14:14 06/03/21 14:13 06/03/21 14:08 06/03/21 14:04 06/03/21 14:03 06/03/21 13:58 06/03/21 13:56 06/03/21 13:54 06/03/21 13:53 06/03/21 13:48 06/03/21 13:45 06/03/21 13:43 06/03/21 13:38 06/03/21 13:35 06/03/21 13:33 06/03/21 13:28 06/03/21 13:24 06/03/21 13:23 06/03/21 13:18 06/03/21 13:14 06/03/21 13:13 06/03/21 13:08 06/03/21 13:05 06/03/21 13:03 06/03/21 12:58 06/03/21 12:55 06/03/21 12:54 06/03/21 12:53 06/03/21 12:48 06/03/21 12:45 06/03/21 12:43 06/03/21 12:38 06/03/21 12:35 06/03/21 12:33 06/03/21 12:29 06/03/21 12:28 06/03/21 12:25 06/03/21 12:24 06/03/21 12:23 06/03/21 12:18 06/03/21 12:15 06/03/21 12:14 06/03/21 12:13 06/03/21 12:08 06/03/21 12:06 06/03/21 12:04 06/03/21 12:03 06/03/21 11:58 06/03/21 11:55 06/03/21 11:53 06/03/21 11:48 06/03/21 11:44 06/03/21 11:43 06/03/21 11:38 06/03/21 11:33 06/03/21 11:28 06/03/21 11:24 06/03/21 11:23 06/03/21 09:39 06/03/21 07:42 Pain Intensity Abdomen: Pain Intensity: 2 Transfer of Care Handoff Completed per policy Notes Mental Status: alert / awake / arousable and participated in evaluation Patient Amnestic to Procedure: Yes Nausea / Vomiting: adequately controlled Pain: adequately controlled Airway Patency, RR, SpO2: stable & adequate BP & HR: stable & adequate Hydration State: stable & adequate Neuraxial Anesthesia: was administered and sensory block is resolving Anesthetic Complications: no major complications apparent
[2021-06-03] MEDS: DOCUSATE SODIUM 100 MG CAP PO SCH (20:09)
[2021-06-03] MEDS: LABETALOL HCL 100 MG TAB PO SCH (20:09)
[2021-06-04] MEDS ORDERED: KETOROLAC 30 MG/ML VIAL IV STA (02:05)
[2021-06-04] MEDS ORDERED: PROMETHAZINE HCL 25 MG in SODIUM CHLORIDE 0.9% 50 ML IV PRN (03:20)
[2021-06-04] MEDS ORDERED: ZOLPIDEM TARTRATE 5 MG TAB PO PRN (03:20)
[2021-06-04] MEDS ORDERED: ONDANSETRON INJ 2 MG/ML 2 ML VIAL IV PRN (03:20)
[2021-06-04] MEDS ORDERED: diphenhydrAMINE Capsule 25 MG CAP PO PRN (03:20)
[2021-06-04] MEDS ORDERED: diphenhydrAMINE 50 MG/ML VIAL IV PRN (03:20)
[2021-06-04] MEDS ORDERED: KETOROLAC 30 MG/ML VIAL IV PRN (03:20)
[2021-06-04] MEDS ORDERED: LACTATED RINGER'S 1,000 ML IV SCH (04:17)
[2021-06-04 05:46] LABS: Basophils # (auto) 0.03 K/uL (0-0.2); Basophils % (auto) 0.3 %; Eosinophils # (auto) 0.11 K/uL (0-0.5); Eosinophils % (auto) 1.1 %; Hemoglobin 8.6 g/dL (12.0-16.0); Immature Granulocytes # (auto) 0.03 K/uL (0.00-0.02); Immature Granulocytes % (auto) 0.3 %; Lymphocytes # (auto) 2.01 K/uL (1.2-3.4); Lymphocytes % (auto) 20.3 %; Mean Corpuscular Hemoglobin 21.2 pg (25-34); Mean Corpuscular Hgb Conc 29.7 g/dL (32-36); Mean Corpuscular Volume 71.4 fL (80-100); Mean Platelet Volume 9.9 fL (7.4-10.4); Monocytes # (auto) 0.81 K/uL (0.11-0.59); Monocytes % (auto) 8.2 %; Neutrophils # (auto) 6.92 K/uL (1.4-6.5); Neutrophils % (auto) 69.8 %; Platelet Count 293 K/uL (130-400); RDW Coefficient of Variation 16.7 % (11.5-14.5); RDW Standard Deviation 43.4 fL (36.4-46.3); Red Blood Count 4.06 M/uL (4.2-5.4); White Blood Count 9.91 K/uL (4.8-10.8)
[2021-06-04] MEDS: oxyCODONE/ACETAMINOPHEN 5mg/325mg TAB PO PRN ×3 (05:55→18:55)
[2021-06-04 06:28] LABS: Hypochromasia Present; Poikilocytosis Present
--- NOTE | 2021-06-04 06:57 | Obstetrical Progress Note ---
Date of Service <Monika Noah - Last Filed: 06/04/21 07:26> June 04, 2021 Assessment & Plan <Monika NoahDO - Last Filed: 06/04/21 07:26> (1) Status post section: (2) Essential hypertension: (3) Chronic hypertension affecting : (4) Anemia: 30 yo post op day1 from c/s with essential HTN, doing well. -Continue routine post care. -vital signs reviewed and WNL (Tmax 37) -Blood Type O+, GBS-, Rubella Immune -Encourage ambulation, monitor and control pain with Motrin, tylenol PRN, resume regular diet, monitor lochia -continue wound care -encourage breast feeding -hemoglobin 8.6 -will encourage iron supplements upon discharge Day #:: 1 <Caleb El MD, FACOG - Last Filed: 06/04/21 07:31> (1) Status post section: (2) Essential hypertension: (3) Chronic hypertension affecting : (4) Anemia: Subjective <Monika Zamora DO - Last Filed: 06/04/21 07:26> Ambulation: ambulating normally Voiding: no voiding problems Passing Gas:: No Diet Tolerance:: regular diet Lochia:: Moderate Feeding Type:: breast feeding Current Pain Level(1-10): 2 Review of Systems Negative fever chills Negative headache dizziness Negative chest pain palpitations SOB Negative nausea vomitting diarrhea constipation Negative numbness tingling rash swelling Physical Exam <Monika Noah - Last Filed: 06/04/21 07:26> General: Alert, oriented. No acute distress. Cardiac: Regular rate and rhythm, no murmurs/rubs/gallops. Respiratory: Clear to auscultation bilaterally a/p, no wheezes/rales/rhonchi. No increased work of breathing. Symmetrical chest rise. No respiratory distress. Abdomen: Soft, nontender, nondistended. Bowel sounds present. Uterus: Uterine fundus firm, palpable 2 cm below umbilicus. Surgical scar clean and healing well. Lower Extremities: No lower extremity edema or swelling. No deep calf pain. Josue's negative bilaterally. Results & Data ([facility]) <Monika Zamora DO - Last Filed: 06/04/21 07:26> Vital Signs (Past 12 Hours) Vital Signs Temp Pulse Resp BP Pulse Ox 06/04/21 04:00 37.0 C 79 18 126/78 97 06/04/21 03:20 18 97 06/04/21 03:00 18 97 06/04/21 02:00 18 96 06/04/21 01:00 18 97 06/04/21 00:00 18 100 06/03/21 23:50 37.0 C 83 18 118/75 97 06/03/21 23:00 18 100 06/03/21 22:00 18 95 06/03/21 21:00 18 96 06/03/21 20:12 37.0 C 79 18 119/78 96 06/03/21 20:00 18 95 06/03/21 19:00 18 99 <Caleb El MD, FACOG - Last Filed: 06/04/21 07:31> Co-Signing Physician Notes Resident Physician Supervision Note: I was present with [Name of resident] during the history and exam. I discussed the case with the resident and agree with the findings and plan as documented in the note. Any exceptions or clarifications are listed here: [None] Documented By: Caleb El MD, FACOG Resident Activity Tracking <Monika Zamora DO - Last Filed: 06/04/21 07:26> Resident Involvement: Resident Care Provided Care Provided: Adult Hospital Medicine
[2021-06-04] MEDS: FERROUS SULFATE 325 MG TAB PO SCH (07:37)
[2021-06-04] MEDS: IBUPROFEN 600 MG TAB PO PRN ×3 (07:37→18:56)
[2021-06-04] MEDS: PRENATAL VITAMIN 1 TAB PO SCH (07:37)
[2021-06-04] MEDS: DOCUSATE SODIUM 100 MG CAP PO SCH ×2 (07:38→20:20)
[2021-06-04] MEDS: SIMETHICONE 80 MG CHEW PO SCH ×5 (07:39→20:20)
[2021-06-04] MEDS: LABETALOL HCL 100 MG TAB PO SCH ×2 (10:11→20:20)
[2021-06-05] MEDS: IBUPROFEN 600 MG TAB PO PRN ×2 (02:50→08:16)
[2021-06-05] MEDS: oxyCODONE/ACETAMINOPHEN 5mg/325mg TAB PO PRN ×2 (02:50→08:17)
[2021-06-05 06:46] LABS: Hematocrit (blood only) 28.5 % (37-47); Hemoglobin 8.4 g/dL (12.0-16.0)
--- NOTE | 2021-06-05 07:29 | Obstetrical Progress Note ---
Date of Service <Monika Zamora DO - Last Filed: 06/05/21 07:29> June 05, 2021 Assessment & Plan <Monika Zamora DO - Last Filed: 06/05/21 07:29> (1) Status post section: (2) Essential hypertension: (3) Chronic hypertension affecting : (4) Anemia: 30 yo post op day2 from c/s with essential HTN, doing well. -Continue routine post care. -vital signs reviewed and WNL (Tmax 37) -Blood Type O+, GBS-, Rubella Immune -Encourage ambulation, monitor and control pain with Motrin, tylenol PRN, resume regular diet, monitor lochia -continue wound care -encourage breast feeding with bottle supplementation -hemoglobin 8.4 -will encourage iron supplements upon discharge -Patient comfortable with discharge today Day #:: 2 <Rosa Isela Lloyd MD, FACOG - Last Filed: 06/05/21 07:52> (1) Status post section: (2) Essential hypertension: (3) Chronic hypertension affecting : (4) Anemia: Subjective <Monika Zamora DO - Last Filed: 06/05/21 07:29> Ambulation: ambulating normally Voiding: no voiding problems Passing Gas:: Yes Diet Tolerance:: regular diet Lochia:: Small Feeding Type:: breast feeding (with bottle supplementation) Current Pain Level(1-10): 0 Review of Systems Negative fever chills Negative headache dizziness Negative chest pain palpitations SOB Negative nausea vomitting diarrhea constipation Negative numbness tingling rash swelling Physical Exam <DO Ashley Arechiga Last Filed: 06/05/21 07:29> General: Alert, oriented. No acute distress. Cardiac: Regular rate and rhythm, no murmurs/rubs/gallops. Respiratory: Clear to auscultation bilaterally a/p, no wheezes/rales/rhonchi. No increased work of breathing. Symmetrical chest rise. No respiratory distress. Abdomen: Soft, nontender, nondistended. Bowel sounds present. Uterus: Uterine fundus firm, palpable 1 cm below umbilicus. Surgical scar clean and healing well. Lower Extremities: No lower extremity edema or swelling. No deep calf pain. Josue's negative bilaterally. Results & Data ([facility]) <Monika Dong, DO - Last Filed: 06/05/21 07:29> Vital Signs (Past 12 Hours) Vital Signs Temp Pulse Resp BP 06/04/21 23:55 36.7 C 82 18 122/77 <Rosa Isela Lloyd MD, FACOG - Last Filed: 06/05/21 07:52> Co-Signing Physician Notes Resident Physician Supervision Note: I interviewed and examined the patient. Discussed with Dr. Zamora and agree with findings and plan as documented in the note. Any exceptions or clarifications are listed here: Doing well. POD #2. Plan d/c home. Instructions given. Documented By: Rosa Isela Lloyd MD, FACOG Resident Activity Tracking <Monika Zamora DO - Last Filed: 06/05/21 07:29> Resident Involvement: Resident Care Provided Care Provided: Adult Hospital Medicine
--- NOTE | 2021-06-05 07:43 | Medical Student Progress Note ---
Date of Service June 05, 2021 Assessment & Plan (1) Status post section: Plan: - c/s @38 wk due to double footling breech and CHT - hgb 8.4 (2/2) hct 28.5 (2/2); hgb 8.6 (2/1), hct 29.0 (2/1) - provide discharge education - f/u with obgyn in 6 weeks Admission and Anticipated Discharge Date Admission Date: June 03, 2021 Subjective Patient was seen at bedside while nursing infant. She did well overnight albeit not getting much sleep due to cluster feeding. This morning, she endorses passing gas and continuing to ambulate and urinatine with no significant issue. She denies BM. She endorses minimal light-pink vaginal bleeding; changed her padx2. She denies appreciating any clots. Pain 2/10. She feels she is ready to be discharged. Otherwise, she denies f/c, lightheadedness/dizziness, chest pain/palpitation, SOB, LE pain. Physical Exam Constitutional: Appears well, in no acute distress. Cardiovascular: Regular rate and rhythm. No mumurs, rubs, or gallops. Capillar y refill <2s. No LE edema. Gastrointestinal (Abdomen): Soft, nondistended. LQ tenderness at level of incision. Normoactive sound. Skin: Incision is dry, nonerythematous, and intact. A couple acchymoses were appreciated below the incision site. Neurologic: Alerted and oriented x2. Psychiatric: Appropriate mood and affect. Genitourinary: Fundus is firm, tender, located 2cm below umbilicus. Minimal bleeding was appreciated on pad. Results & Data ([facility]) Vital Signs (Past 12 Hours) Vital Signs Temp Pulse Resp BP 06/04/21 23:55 36.7 C 82 18 122/77 Supervising Attestation Pateint seen and evaluated, please see note.
[2021-06-05] MEDS: PRENATAL VITAMIN 1 TAB PO SCH (08:15)
[2021-06-05] MEDS: FERROUS SULFATE 325 MG TAB PO SCH (08:15)
[2021-06-05] MEDS: SIMETHICONE 80 MG CHEW PO SCH (08:15)
[2021-06-05] MEDS: DOCUSATE SODIUM 100 MG CAP PO SCH (08:15)
[2021-06-05] MEDS: LABETALOL HCL 100 MG TAB PO SCH (09:58)
--- NOTE | 2021-06-07 18:00 | Discharge Summary ---
Date of Service Date of admission: May Date of discharge: June 05, 2021 Admission HPI Per Admitting Provider 30yo at 38+wks ega on day of her admission for planned section due to malpresentation and chronic hypertension. This baby has been footling breech. Aware of ecv and declined. Ready to proceed with c/s. No rom, no vb. +FM. Has had dx of chronic htn and getting nsts, dvps and growth us as per protocol. PNC c/b 1. CHTN --on labetalol 100mg bid, last growth u/s on 05/17/21 efw 88% 2. Breech presentation PNL rh pos, ri, gbs neg OBH: x 1, sab x 1 GYNH: nl paps no stds. Discharge Data Consultations 06/03/21 07:08 Consult Anesthesiology Stat Procedures Performed Operation Date: 06/03/21 07:30 Actual Procedures p Section (Delivery of Baby Through Abdominal Incision) - Brittney Jenkins MD, [facility] Course (1) 38 weeks gestation of : (2) Chronic hypertension affecting : (3) malpresentation: (4) Status post section: The patient underwent the above stated procedure without incident and her postoperative course and recovery was uncomplicated. On her postoperative day #2 she was tolerating a regular diet, voiding spontaneously, ambulating without problem and was using oral meds for adequate pain control. Her postoperative hemoglobin was 8.4. She was given written and verbal discharge instructions and told to followup in office at 6wks. She was given appropriate pain medicine prescriptions. Coding Level of Care Code None Diagnoses 38 weeks gestation of Z3A.38 Chronic hypertension affecting O10.919 malpresentation O32.9XX0 Status post section Z98.891
== END 2021-06-05 11:20 | disposition home or self-care (01) | DRG 788 ==
LOC: 4S1 06:54 → EDSTATUS 09:10 → 4S2 14:30